=== PATIENT | male | born 1995 | race Caucasian/White ===

== ENCOUNTER 2023-12-18 00:04 | Emergency (ER) | payer BC, MEDICAID ==
[~2023-12-18] VITALS: Ht 177.8 cm; Wt 99.8 kg
[2023-12-18] MEDS ORDERED: MORPHINE SULFATE INJ 4 MG/ML DISP.SYRIN ONE (00:43)
[2023-12-18] MEDS ORDERED: ONDANSETRON HCL/PF 4 MG/2 ML VIAL ONE (00:43)
[2023-12-18 00:46] LABS: LYMPHOCYTES # (AUTO) 0.9 K/uL (0.8-4.8); MONOCYTES # (AUTO) 0.7 K/uL (0.1-1.30); MONOCYTES % (AUTO) 5.2 % (2.0-12.0)
[2023-12-18] MEDS: MORPHINE SULFATE INJ 2 MG/ML DISP.SYRIN IV ONE (00:47)
[2023-12-18] MEDS: IV NS 0.9% 1,000 ML BAG IV ONE (00:47)
[2023-12-18] MEDS: ONDANSETRON HCL/PF 4 MG/2 ML VIAL IVP ONE (00:48)
[2023-12-18 00:50] LABS: BASOPHILS % (AUTO) 0.1 % (0.0-2.0); HEMATOCRIT 49 % (39-51); HEMOGLOBIN 16.5 g/dL (13.5-17.5); LYMPHOCYTES % (AUTO) 6.4 % (20.0-44.0); MEAN CORPUSCULAR HEMOGLOBIN 29 PG (26.0-33.0); MEAN CORPUSCULAR HGB CONC 34 g/dl (31.0-36.0); MEAN CORPUSCULAR VOLUME 87 fL (80-96); NEUTROPHILS # (AUTO) 12.2 K/uL (1.8-8.9); NEUTROPHILS % (AUTO) 88.3 % (43.0-81.0); PLATELET COUNT (AUTO) 240 K/uL (150-450); RED BLOOD CELL COUNT(AUTO) 5.62 MIL/uL (4.5-6.0); RED CELL DISTRIBUTION WIDTH 13.6 % (11.5-15.0); WHITE BLOOD COUNT (AUTO) 13.8 K/uL (4.3-11.0)
[2023-12-18 00:54] LABS: CALCIUM, SERUM 9.6 mg/dL (8.5-10.1); CARBON DIOXIDE 30 mmol/L (21-32); CHLORIDE 98 mmol/L (98-107); CREATININE 0.9 mg/dL (0.6-1.3); GLUCOSE 156 mg/dL (74-106); POTASSIUM 3.8 mmol/L (3.5-5.1); SODIUM SERUM 138 mmol/L (136-145); UREA NITROGEN, BLOOD 10 mg/dL (7-18)
[2023-12-18 01:00] LABS: ALANINE AMINOTRANSFERASE 34 U/L (12-78); ALBUMIN 4.3 g/dL (3.4-5.0); ALKALINE PHOSPHATASE 73 U/L (46-116); ASPARTATE AMINOTRANSFERASE 15 U/L (15-37); BILIRUBIN,DIRECT 0.2 mg/dL (0.0-0.2); BILIRUBIN,TOTAL 0.8 mg/dL (0.2-1.0); LIPASE 34 U/L (16-77); TOTAL PROTEIN, SERUM 8.4 g/dL (6.4-8.2)
[2023-12-18] MEDS ORDERED: DIAZEPAM 5 MG TABLET PO ONE (01:30)
[2023-12-18] MEDS ORDERED: QUETIAPINE FUMARATE 100 MG TABLET PO SCH (01:30)
[2023-12-18 02:36] LABS: APPEARANCE,URINE CLEAR (CLEAR); BILIRUBIN,URINE 1+ (NEGATIVE); BLOOD, URINE NEGATIVE Ery/uL (NEGATIVE); COLOR,URINE YELLOW (YELLOW); KETONES,URINE 2+ mg/dL (NEGATIVE); LEUKOCYTE ESTERASE ,URINE NEGATIVE (NEGATIVE); NITRITE, URINE NEGATIVE (NEGATIVE); PH,URINE 6.5 (5.0-8.0); PROTEIN,URINE 1+ mg/dl (NEGATIVE); UGLUCOSE 1+ mg/dL (NEGATIVE); UROBILINOGEN,URINE 0.2 EU/dL (0.2)
[2023-12-18] MEDS ORDERED: IBUP-1953 PO (02:49)
[2023-12-18] MEDS ORDERED: PANT40TA2 PO (02:49)
[2023-12-18] MEDS ORDERED: AMLO10TA4 PO (02:49)
[2023-12-18] MEDS ORDERED: ONDA4TAB5 PO (02:49)
[2023-12-18 02:54] LABS: RBC,URINE NONE SEEN /HPF (0-2)
[2023-12-18 02:55] LABS: ADD URINE CULTURE NO; BACTERIA,URINE Few /HPF (None Seen); MUCUS,URINE Moderate /LPF (None Seen); SQUAMOUS EPITHELIAL CELL,UR None Seen /HPF (None Seen); WBC,URINE NONE SEEN /HPF (0-3)
[2023-12-18] MEDS ORDERED: LIDOCAINE VISCOUS 2% UD 15 ML UDC ONE (02:58)
[2023-12-18] MEDS ORDERED: MAG HYDROX/AL HYDROX/SIMETH 30 ML UDC ONE (02:58)
[2023-12-18] MEDS ORDERED: ACETAMINOPHEN ES 500 MG TABLET ONE (02:58)
[2023-12-18] MEDS: LIDOCAINE VISCOUS 2% UD 15 ML UDC MM ONE (03:00)
[2023-12-18] MEDS: MAG HYDROX/AL HYDROX/SIMETH 30 ML UDC PO ONE (03:00)
[2023-12-18] MEDS: ACETAMINOPHEN ES 500 MG TABLET PO ONE (03:00)
[2023-12-18 03:22] VITALS: BP 161/100; TEMP 97.7; O2SAT 98
== END 2023-12-18 03:22 | disposition home or self-care (01) ==
LOC: ER 00:08
DX: R10.12 Left upper quadrant pain (principal); R11.2 Nausea with vomiting, unspecified; R00.0 Tachycardia, unspecified; E86.0 Dehydration; I10 Essential (primary) hypertension
CPT/HCPCS: 99285; 74176; 96374; 71045; 96361; 96375; 93005; 85025; 80048; 83690; 80076; 81001; 36415; 84484; J2270; J2405; J7030